=== PATIENT | female | born 1945 | race Two or more races ===

== ENCOUNTER 2016-09-18 21:44 | Emergency (ER) | payer MEDICARE, OTHER ==
[~2016-09-18] VITALS: Ht 165.1 cm; Wt 54.4 kg
[2016-09-18 21:44] VITALS: BP 125/73
[2016-09-18] MEDS ORDERED: LIDOCAINE /MPF 1% VIAL 5 ML VIAL ONE (22:40)
[2016-09-18] MEDS ORDERED: LIDOCAINE HCL/PF 2 % 5ML SDV 5 ML VIAL ONE (23:03)
== END 2016-09-18 23:35 | disposition home or self-care (01) ==
LOC: ER 21:49
DX: S61.011A Laceration without foreign body of right thumb without damage to nail, initial encounter (principal); Z88.0 Allergy status to penicillin; Z88.2 Allergy status to sulfonamides; W26.0XXA Contact with knife, initial encounter; Y93.89 Activity, other specified; Y92.89 Other specified places as the place of occurrence of the external cause; Y99.8 Other external cause status
CPT/HCPCS: 12001; 73140; 99284; A4606; A6403; J3490 ×2; Z7610